=== PATIENT | female | born 1930 | race Caucasian/White ===

== ENCOUNTER 2017-04-23 09:08 | Emergency (ER) | payer MEDICARE, OTHER ==
--- NOTE | 2017-04-23 10:09 | ERNOTE ---
Trauma/Assault HPI - Narrative Date of Service: 04/23/17 - General Stated Complaint: FALL-RIB PAIN/BACK Time Seen by Provider: 04/23/17 10:06 Source: patient, family, RN notes reviewed Exam Limitations: dementia - Immun/Allergies/Home Medications Immunizations: IMMUNIZATION HX Immunizations Up to Date No: unknown History of Influenza Vaccine Yes Allergies/Adverse Reactions: Allergies No Known Allergies Allergy (Verified 04/23/17 09:32) Home Medications: HOME MEDICATIONS Cholecalciferol (Vitamin D3) [Vitamin D3] 2,000 unit PO DAILY 01/04/16 [Last Taken Unknown] Simvastatin [Zocor] 20 mg PO HS 01/04/16 [Last Taken Unknown] Cyanocobalamin [Vitamin B-12] 1,000 mcg PO DAILY #100 tablet 01/05/16 [Last Taken Unknown] Polyethylene Glycol 3350 [Miralax] 17 gm PO HS #1 btl 01/05/16 [Last Taken Unknown] Losartan Potassium [Cozaar] 25 mg PO BID 05/19/16 [Last Taken Unknown] Memantine HCl [Namenda] 10 mg PO BID 05/19/16 [Last Taken Unknown] Metoprolol Tartrate [Lopressor] 25 mg PO BID 04/23/17 [Last Taken Unknown] oxyCODONE HCL/ACETAMINOPHEN [Oxycodone-Acetaminophen 5-325] 1 each PO Q6H PRN # 20 tablet 04/23/17 [Last Taken Unknown] - History of Present Illness Date (Duration): 04/23/17 Time (Timing): 09:00 Narrative: Dilcia is a 86 year old female brought to the ED by her children after a fall just [employer]POR[employer] DIRECT[employer] at home. She ambulates with a walker. Her son reports that her gait is normally very unsteady, but he is unsure what exactly caused the fall. The fall was witnessed. She is having pain in her left posterior ribs and has a contusion and small laceration to her left 5th finger. Location Occurred: Reports: home Pain Location: Reports: chest - Left posterior ribs Method of Injury: Reports: fall Loss of Consciousness: Reports: no loss of consciousness Associated Symptoms - Trauma: Reports: chest pain - left posterior, shortness of breath. Denies: headache, dizziness, slurred speech, trouble walking, neck pain, abdominal pain, nausea, vomiting Review of Systems - Review of Systems Constitutional: Absent: recent illness, fever EYE: Present: no symptoms reported ENT: Absent: ear discharge, nasal drainage Respiratory: Present: shortness of breath. Absent: cough, wheezing, stridor Cardiology: Present: chest pain. Absent: syncope Gastrointestinal/Abdominal: Present: See HPI Genitourinary: Present: no symptoms reported Musculoskeletal: Present: back pain, muscle pain. Absent: neck pain, joint pain , joint swelling Skin: Absent: rash, lesions, lumps Neurological: Present: pre-existing deficit - dementia. Absent: weakness, numbness, tingling Endocrine: Present: no symptoms reported Hematologic/Lymphatic: Present: no symptoms reported Psych: Present: no symptoms reported - Patient's Past Medical History Patient History - Medical: Dementia, Osteoarthritis, Osteoporosis Patient History - Cardiac/Respiratory: Hypertension, Hyperlipidemia Patient History - Cancer: Colon Patient History - Surgical Procedures: Appendectomy, Cataracts, Colon Resection , Hysterectomy, Other Patient History - Other: None LMP (females 10-50): Menopausal - Family History Mother Family History - Medical: Father Family History - Medical: Sister Family History - Medical: - Social History Living Situations: home - lives with son Abuse History: No History of abuse Psych History: No pertinent hx Smoking Status: Never smoker Have you smoked in the past 12 months: No Alcohol Use: none Drug Use: none - Immunizations Immunizations Up to Date: Yes - last tetanus 12/2015 History of Influenza Vaccine: Yes Physical Exam - Physical Exam General Appearance: Present: wd/wn, alert, no apparent distress Neck: Present: normal inspection, nontender, supple Respiratory: Present: no respiratory distress, normal breath sounds, no accessory muscle use Cardiovascular/Chest: Present: regular rate, rhythm, normal peripheral pulses Gastrointestinal/Abdominal: Present: nontender, nondistended, soft Back Exam: Present: no CVA tenderness, no vertebral tenderness, decreased range of motion, other - severe kyphosis, tenderness with palpation of left posterior ribs Extremity Exam: Present: normal except - - ecchymosis and small laceration to left 5th finger, normal range of motion, no edema Skin Exam: Present: normal color, warm/dry ED Progress - Vital Signs Patient's Vital Signs:: I have reviewed the patient's vital signs. Vital Signs: Vital Signs 04/23/17 09:28 Temperature 36.5 C Pulse Rate 60 Respiratory 14 Rate Blood Pressure 138/85 O2 Sat by Pulse 97 Oximetry - X-Ray X-Ray #1 X-Ray: ribs Interpretation: Reviewed by me X-ray Comments: TECHNIQUE: 4 views of the Left sided ribs. COMPARISONS: None available. Ribs Unilateral LT * Decreased mineralization of bone suggestive of underlying osteopenia or osteoporosis. There is a fracture lucency at the posterior left eighth rib, with mild displacement. There may be an additional fracture of the same rib at the lateral aspect. The visualized portions of the chest demonstrates calcified aorta. No obvious consolidation or pneumothorax. IMPRESSION: 1. Comminuted fracture of the left eighth rib suggested as above. 2. Additional comments are as above. Electronically signed by Adelfo Ferreira M.D.. - Progress/Reassessment Chief Complaint: Fall Progress:: Improved Procedures Left Lateral Proximal Finger 5th Digit Length of Repair/Wound (cm): 1.5 Wound's Depth/Shape: into subcutaneous, flap, contused tissue Wound Explored: clean, to base, in bloodless field, no foreign body Wound Intervention: irrigated w/saline Distal NVT: neuro/vasc intact, no tendon injury Wound Repaired With: Dermabond, Steri-strips Layer Closure: Simple Wound Dressing: sterile dressing applied, splint applied Complications: Pt jasmin procedure well Departure Clinical Impression: Left rib fracture Qualifiers: Encounter type: initial encounter Rib fracture type: single rib Fracture type: closed Qualified Code(s): S22.32XA - Fracture of one rib, left side, initial encounter for closed fracture Fall at home Qualifiers: Encounter type: initial encounter Qualified Code(s): W19.XXXA - Unspecified fall, initial encounter; Y92.099 - Unspecified place in other non-institutional residence as the place of occurrence of the external cause Laceration of finger Qualifiers: Encounter type: initial encounter Finger: little finger Damage to nail status: without damage Foreign body presence: without foreign body Laterality: left Qualified Code(s): S61.217A - Laceration without foreign body of left little finger without damage to nail, initial encounter - Departure Disposition: Home Follow Up Needed Condition: Stable Instructions: Rib Fracture Additional Instructions: Ice to sore areas as needed Give 1 regular strength Tylenol with Percocet - or can give Tylenol alone if she doesn't need the Percocet at that time Give additional laxative if needed Leave dressing in place on finger for at least 2 days - allow steri-strips to come off on their own See Dr. Da Silva for follow-up as scheduled, or return to ER if symptoms worsen Referrals: Omi Da Silva MD [Primary Care Provider] - 04/27/17 2:30 pm Prescriptions: oxyCODONE HCL/ACETAMINOPHEN [Oxycodone-Acetaminophen 5-325] 1 each PO Q6H PRN # 20 tablet PRN Reason: Pain
--- OUTSIDE RECORDS SUMMARY | 2017-04-23 10:19 | XMS REPORT | Continuity of Care Document ---
:1930 Author Organization [facility] ([facility]) Address [place] [address] Phone [phone] Care Team Providers Name Role Phone Provider, No-Primary Care Primary Care Provider Unavailable Source Comments This disclosure is being made pursuant to the Care Everywhere program, applicable federal and state laws, and may not contain all informaitonavailable regarding this patient.[facility] ([facility]) Active Allergies and Adverse Reactions Not on File Current Medications Not on file Active Problems Not on file Social History Tobacco Use Types Packs/Day Years Used Date Never Assessed Plan of Care Health Maintenance Due Date Last Done Comments Hepatitis B Vaccine (1 of 3 - Primary Series) 1930 Tdap Vaccine 1942 Lipid Disorder Screening 1949 Td Vaccine 1949 Colonoscopy 07/31/1981 Zoster Vaccine 1991 Osteoporosis Screening (DXA Bone Density) 1996 Pneumococcal Vaccine (1 of 2 - PCV13) 1996 Influenza Vaccine: Seasonal (#1) 06/19/2016 Results from Last 3 Months Not on file
[2017-04-23] MEDS ORDERED: ACETAMINOPHEN 325 MG TABLET PO ONE (10:36)
[2017-04-23] MEDS ORDERED: oxyCODONE HCL/ACETAMINOPHEN 1 TAB TABLET PO ONE (10:36)
[2017-04-23 10:37] VITALS: BP 193/95
[2017-04-23] MEDS ORDERED: oxyCODONE HCL/ACETAMINOPHEN 1 TAB TABLET ONE (10:39)
[2017-04-23] MEDS ORDERED: ACETAMINOPHEN 325 MG TABLET ONE (10:39)
== END 2017-04-23 11:10 | disposition home or self-care (01) ==
LOC: ER 09:08
PROC: 0JQK0ZZ Repair Left Hand Subcutaneous Tissue and Fascia, Open Approach (ICD-10-PCS; principal; 2017-04-23)
DX: S22.32XA Fracture of one rib, left side, initial encounter for closed fracture (principal); S61.217A Laceration without foreign body of left little finger without damage to nail, initial encounter; Z85.038 Personal history of other malignant neoplasm of large intestine; W18.30XA Fall on same level, unspecified, initial encounter; Z91.81 History of falling; Y93.9 Activity, unspecified; Y92.009 Unspecified place in unspecified non-institutional (private) residence as the place of occurrence of the external cause

== ENCOUNTER 2017-04-26 19:13 | Emergency (ER) | payer MEDICARE, OTHER ==
--- OUTSIDE RECORDS SUMMARY | 2017-04-26 20:42 | XMS REPORT | Continuity of Care Document ---
:1930 Author Organization [facility] ([facility]) [place] [address] Phone [phone] Care Team Providers Name Role Phone Provider, No-Primary Care Primary Care Provider Unavailable Source Comments This disclosure is being made pursuant to the Care Everywhere program, applicable federal and state laws, and may not contain all informaitonavailable regarding this patient.[facility] ([facility]) Active Allergies and Adverse Reactions Not on [...]
--- NOTE | 2017-04-26 20:47 | ERNOTE ---
Medical Problem HPI - General Chief Complaint: General Assessment Time Seen by Provider: 04/26/17 20:35 Source: patient, family Exam Limitations: dementia - Immun/Allergies/Home Medications Immunizations: IMMUNIZATION HX Immunizations Up to Date Yes History of Influenza Vaccine Yes Allergies/Adverse Reactions: Allergies No Known Allergies Allergy (Verified 04/26/17 19:24) Home Medications: HOME MEDICATIONS Cholecalciferol (Vitamin D3) [Vitamin D3] 2,000 unit PO DAILY 01/04/16 [Last Taken Unknown] Simvastatin [Zocor] 20 mg PO HS 01/04/16 [Last Taken Unknown] Cyanocobalamin [Vitamin B-12] 1,000 mcg PO DAILY #100 tablet 01/05/16 [Last Taken Unknown] Polyethylene Glycol 3350 [Miralax] 17 gm PO HS #1 btl 01/05/16 [Last Taken Unknown] Losartan Potassium [Cozaar] 25 mg PO BID 05/19/16 [Last Taken Unknown] Memantine HCl [Namenda] 10 mg PO BID 05/19/16 [Last Taken Unknown] Metoprolol Tartrate [Lopressor] 25 mg PO BID 04/23/17 [Last Taken Unknown] oxyCODONE HCL/ACETAMINOPHEN [Oxycodone-Acetaminophen 5-325] 1 each PO Q6H PRN # 20 tablet 04/23/17 [Last Taken Unknown] - History of Present History Narrative: Pt broke left ribs earlier this week and has been taking percocet for pain. She also has not been eating or drinking well since breaking her ribs. she has not had a BM for 2 days and having crampy/ achy abdominal pain. Timing: getting worse Severity: moderate Review of Systems - Review of Systems Constitutional: Present: no symptoms reported EYE: Present: no symptoms reported ENT: Present: no symptoms reported Respiratory: Absent: shortness of breath Cardiology: Present: no symptoms reported Gastrointestinal/Abdominal: Present: See HPI, constipation, abdominal pain, eating less, drinking less Genitourinary: Present: no symptoms reported Musculoskeletal: Present: back pain - left ribs Skin: Present: no symptoms reported Neurological: Present: dizziness/light-headedness - at dinner today but resolved Endocrine: Present: no symptoms reported Hematologic/Lymphatic: Present: no symptoms reported Psych: Present: no symptoms reported - Patient's Past Medical History Patient History - Medical: Dementia, Osteoarthritis, Osteoporosis Patient History - Cardiac/Respiratory: Hypertension, Hyperlipidemia Patient History - Cancer: Colon Patient History - Surgical Procedures: Appendectomy, Cataracts, Colon Resection , Hysterectomy, Other Patient History - Other: None - Family History Mother Family History - Medical: Father Family History - Medical: Sister Family History - Medical: - Social History Living Situations: home Abuse History: No History of abuse Psych History: No pertinent hx Smoking Status: Former smoker Alcohol Use: none Drug Use: none - Immunizations Immunizations Up to Date: Yes History of Influenza Vaccine: Yes Physical Exam - Physical Exam General Appearance: Present: wd/wn, alert, no apparent distress Neck: Present: normal inspection, nontender Respiratory: Present: no respiratory distress, normal breath sounds, lungs clear Cardiovascular/Chest: Present: regular rate, rhythm Gastrointestinal/Abdominal: Present: normal bowel sounds, nondistended, tenderness - RUQ- mild, other - slightly firm B/L upper quads. Absent: guarding , rebound Back Exam: Present: normal inspection, CVA tenderness (L) - due to prevous rib fracture. Absent: CVA tenderness (R), vertebral tenderness, muscle spasm Extremity Exam: Present: normal inspection, non-tender Neurological Exam: Present: alert, other - memory deficit due to dementia Skin Exam: Present: warm/dry ED Progress - Results and Orders Patient's Lab Results:: I have reviewed the patient's lab results. Results and Orders: Laboratory Tests 04/26/17 04/26/17 21:04 21:04 WBC 9.3 Hgb 14.2 Hct 43.2 Plt Count 192 Neutrophils % 83.0 H Sodium 138 Potassium 3.8 Chloride 99 Carbon Dioxide 32.2 Anion Gap 10.6 BUN 30 H D Creatinine 0.95 Est GFR (Non-Af Amer) 59 L BUN/Creatinine Ratio 31.6 H Random Glucose 119 H Calcium 10.0 Total Bilirubin 0.6 AST 14 ALT 17 L Alkaline Phosphatase 93 Total Protein 7.4 Albumin 3.1 L - Vital Signs Patient's Vital Signs:: I have reviewed the patient's vital signs. Vital Signs: Vital Signs 04/26/17 19:18 Temperature 36.8 C Pulse Rate 70 Respiratory 18 Rate Blood Pressure 179/95 O2 Sat by Pulse 96 Oximetry - X-Ray X-Ray #1 X-Ray: abdomen Interpretation: Reviewed by me X-ray Comments: mild stool retention. non-specific bowel gas pattern. Small to moderate left sided pleural effusion X-Ray #2 X-Ray: chest Interpretation: Interp. by me X-ray Comments: Small to moderate left pleural effusion. increased thoracic kyphotic curve Displaced posterior left 8th or 9th rib fracture - CT/Ultrasound CT/Ultrasound Narrative: CT chest without contrast: Posterior left 6-10th rib fractures, 9th is displaced Tiny, less than 5% left pneumothorax mild to moderate left pleural effusion dependent consolidation left lower lobe and band densities b/l likely atelactasis. 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 CXR was ordered, Effusion noted on the left and possible some pneumo on the right upper lung. CT chest with contrast ordered but we were unable to get an IV so order was changed to CT chest without Departure - Departure Clinical Impression: Multiple rib fractures involving four or more ribs, Pleural effusion on left, Pneumothorax on left, Constipation due to opioid therapy Disposition: Home Follow Up Needed Condition: Good Instructions: Constipation, Adult, [id number], Rib Fracture, Pneumothorax, Pleural Effusion Additional Instructions: See Dr. Da Silva as scheduled tomorrow. Take milk of magnesia if needed tomorrow. Return to ER if you begin to be short of breath, dizzy or have chest pain.
[2017-04-26 21:09] LABS: Hematocrit 43.2 % (37.0-47.0); Hemoglobin 14.2 gm/dL (12.5-16.0); Mean Cell Volume 89.8 fl (78-100); Mean Corpuscular Hemoglobin 29.5 pg (27-31); Mean Corpuscular Hgb Conc 32.9 g/dl (32-36); Mean Platelet Volume 10.8 fl (6.0-9.5); Neutrophil # 7.7 K/mm3 (1.3-6.0); Platelet Count 192 K/mm3 (150-450); Red Blood Count 4.81 M/mm3 (4.2-5.4); Red Cell Distribution Width 13.6 % (11.5-14.0); White Blood Count 9.3 K/mm3 (4.0-10.5)
[2017-04-26 21:28] LABS: Albumin * 3.1 gm/dl (3.4-5.0); Anion Gap 10.6 mmol/L (6.8-13.8); BUN/Creatinine Ratio 31.6 (9.0-21.6); Bilirubin, Total 0.6 mg/dL (0.0-1.1); Ca. Corrected For Albumin 10.4 mg/dL (8.4-10.2); Carbon Dioxide 32.2 mmol/L (24-32.6); Potassium 3.8 mmol/L (3.4-4.6); Total Protein 7.4 gm/dL (6.2-8.2)
[2017-04-27] MEDS ORDERED: MAGNESIUM HYDROXIDE 30 ML UDC PO ONE (00:35)
[2017-04-27 01:00] VITALS: BP 176/81
== END 2017-04-27 00:47 | disposition home or self-care (01) ==
LOC: ER 19:13
DX: M84.48XD Pathological fracture, other site, subsequent encounter for fracture with routine healing (principal); J90 Pleural effusion, not elsewhere classified; J93.9 Pneumothorax, unspecified; K59.03 Drug induced constipation; K31.9 Disease of stomach and duodenum, unspecified; T40.2X5A Adverse effect of other opioids, initial encounter; Y92.9 Unspecified place or not applicable

== ENCOUNTER 2017-07-26 19:24 | Emergency (ER) | payer MEDICARE, OTHER ==
[2017-07-26 19:46] LABS: Hematocrit 39.2 % (37.0-47.0); Hemoglobin 12.7 gm/dL (12.5-16.0); Mean Cell Volume 93.8 fl (78-100); Mean Corpuscular Hemoglobin 30.4 pg (27-31); Mean Corpuscular Hgb Conc 32.4 g/dl (32-36); Neutrophil # 5.2 K/mm3 (1.3-6.0); Neutrophil % 72.8 % (42-75.0); Platelet Count 255 K/mm3 (150-450); Red Blood Count 4.18 M/mm3 (4.2-5.4); Red Cell Distribution Width 16.7 % (11.5-14.0); White Blood Count 7.1 K/mm3 (4.0-10.5)
--- NOTE | 2017-07-26 19:55 | ERNOTE ---
Syncope ER HPI Stated Complaint: LOC Time Seen by Provider: 07/26/17 19:35 Source: patient, family Exam Limitations: no limitations Immunizations: IMMUNIZATION HX Immunizations Up to Date Yes History of Influenza Vaccine Yes Allergies/Adverse Reactions: Allergies No Known Allergies Allergy (Verified 07/26/17 19:30) Home Medications: HOME MEDICATIONS Cholecalciferol (Vitamin D3) [Vitamin D3] 2,000 unit PO DAILY 01/04/16 [Last Taken Unknown] Simvastatin [Zocor] 20 mg PO HS 01/04/16 [Last Taken Unknown] Cyanocobalamin [Vitamin B-12] 1,000 mcg PO DAILY #100 tablet 01/05/16 [Last Taken Unknown] Polyethylene Glycol 3350 [Miralax] 17 gm PO HS #1 btl 01/05/16 [Last Taken Unknown] Losartan Potassium [Cozaar] 25 mg PO BID 05/19/16 [Last Taken Unknown] Memantine HCl [Namenda] 10 mg PO BID 05/19/16 [Last Taken Unknown] Metoprolol Tartrate [Lopressor] 25 mg PO BID 04/23/17 [Last Taken Unknown] oxyCODONE HCL/ACETAMINOPHEN [Oxycodone-Acetaminophen 5-325] 1 each PO Q6H PRN # 20 tablet 04/23/17 [Last Taken Unknown] - History of Present Illness Narrative: Patient was sitting in the front row for the rodeo when her family noticed that she became unresponsive and slumped over in her seat. symptoms lasted about five minutes max, she was attended to by EMS and feels completely back to normal now. Patient does not remember any symptoms prior to syncope. She has a history of TIA, no prior CVA. Prior Episodes: Present: no prior history, single episode today Symptoms prior to episode: Present: none Activity at time of episode: Present: sitting Character of event: Present: prolonged (minutes), awake and alert after becoming supine. Absent: incontinent Location of Injury: Present: none Current Symptoms: Present: back to normal Prior Treament: Denies: recently seen, treated by physician, recently hospitalized, similar symptoms before Review of Systems - Review of Systems Constitutional: Absent: recent illness, fever EYE: Absent: double vision, vision changes Respiratory: Absent: shortness of breath Cardiology: Absent: chest pain Gastrointestinal/Abdominal: Absent: nausea, abdominal pain - Patient's Past Medical History Patient History - Medical: Dementia, Osteoarthritis, Osteoporosis Patient History - Cardiac/Respiratory: Hypertension, Hyperlipidemia Patient History - Cancer: Colon Patient History - Surgical Procedures: Appendectomy, Cataracts, Colon Resection , Hysterectomy, Other Patient History - Other: None LMP (females 10-50): Menopausal - Family History Mother Family History - Medical: Father Family History - Medical: Sister Family History - Medical: - Social History Living Situations: home Abuse History: No History of abuse Psych History: No pertinent hx Alcohol Use: none Drug Use: none - Immunizations Immunizations Up to Date: Yes History of Influenza Vaccine: Yes Physical Exam - Physical Exam General Appearance: Present: wd/wn, alert, no apparent distress Head Exam: Present: normal inspection, no evidence of injury Eye Exam: Normal inspection: bilateral, PERRL: bilateral, EOMI: bilateral Ears, Nose, Throat: Present: normal ENT inspection, normal pharynx Respiratory: Present: no respiratory distress, normal breath sounds, no accessory muscle use, lungs clear Cardiovascular/Chest: Present: regular rate, rhythm, no murmur, normal peripheral pulses Gastrointestinal/Abdominal: Present: normal bowel sounds, nontender, nondistended, soft Extremity Exam: Present: no edema Neurological Exam: Present: alert, oriented, normal mood/affect, no motor/ sensory deficits, normal cerebellar test Skin Exam: Present: normal color, warm/dry ED Progress - Results and Orders Patient's Lab Results:: I have reviewed the patient's lab results. - Vital Signs Patient's Vital Signs:: I have reviewed the patient's vital signs. Vital Signs: Vital Signs 07/26/17 07/26/17 07/26/17 19:27 19:32 19:49 Temperature 36.5 C Pulse Rate 72 72 75 Respiratory 16 24 H Rate Blood Pressure 156/66 144/62 O2 Sat by Pulse 96 Oximetry - EKG EKG: NSR, LA - 231, 1st degree , QRS - block, RBBB - incomplete, unchanged from 05/2017 EKG read: Interp. by me - Progress/Reassessment Chief Complaint: Syncopal Episode Progress Note-Subjective: 07/26/17 20:58 patient alert, denies any symptoms, discussed normal test results with patient and family Departure Clinical Impression: Syncope Qualifiers: Syncope type: unspecified Qualified Code(s): R55 - Syncope and collapse - Departure Disposition: [facility] Condition: Stable Instructions: Syncope, [id number] Additional Instructions: call your doctor for follow up Referrals: Omi Da Silva MD [Staff Physician] -
[2017-07-26 20:06] LABS: Albumin * 3.6 gm/dl (3.4-5.0); Anion Gap 14.1 mmol/L (6.8-13.8); BUN/Creatinine Ratio 27.4 (9.0-21.6); Bilirubin, Total 0.3 mg/dL (0.0-1.1); Ca. Corrected For Albumin 9.2 mg/dL (8.4-10.2); Calcium * 9.2 mg/dL (7.9-10.9); Carbon Dioxide 29.8 mmol/L (24-32.6); Potassium 3.9 mmol/L (3.4-4.6); Total Protein 7.2 gm/dL (6.2-8.2)
[2017-07-26 20:51] LABS: Urine Bilirubin Negative (NEGATIVE); Urine Blood Negative /ul (NEGATIVE); Urine Ketone Negative (NEGATIVE); Urine Nitrite Negative (NEGATIVE); Urine Protein Negative (NEGATIVE); Urine Specific Gravity >=1.030 SP.GR. (1.005-1.010); Urine Urobilinogen Normal (NORMAL); Urine pH 5.5 pH (5.0-7.0)
[2017-07-26 21:06] LABS: Urine Appearance Clear; Urine Bacteria TRACE; Urine Color Dark Yellow; Urine Hyaline Cast 0-5 /LPF; Urine RBC None Seen /hpf (0-5); Urine WBC 0-5 /hpf (0-5)
[2017-07-26 22:15] VITALS: BP 146/76
== END 2017-07-26 21:17 ==
LOC: ER 19:24
DX: R55 Syncope and collapse (principal); Z85.038 Personal history of other malignant neoplasm of large intestine

== ENCOUNTER 2018-01-10 10:05 | Emergency (ER) | payer MEDICARE, MEDICAID ==
[2018-01-10 10:19] VITALS: BP 99/69
--- NOTE | 2018-01-10 10:39 | ERNOTE ---
Back Pain ER HPI Date of Service: 01/10/18 Presenting Symptoms: injury/pain to back Time Seen by Provider: 01/10/18 10:11 Source: patient, family, skilled nursing records Exam Limitations: hard of hearing, dementia Immunizations: IMMUNIZATION HX Immunizations Up to Date Yes History of Influenza Vaccine Yes Hx Pneumococcal Vaccination Yes Allergies/Adverse Reactions: Allergies No Known Allergies Allergy (Verified 01/10/18 10:19) Home Medications: HOME MEDICATIONS Cholecalciferol (Vitamin D3) [Vitamin D3] 2,000 unit PO DAILY 01/04/16 [Last Taken Unknown] Simvastatin [Zocor] 20 mg PO HS 01/04/16 [Last Taken Unknown] Cyanocobalamin [Vitamin B-12] 1,000 mcg PO DAILY #100 tablet 01/05/16 [Last Taken Unknown] Polyethylene Glycol 3350 [Miralax] 17 gm PO HS #1 btl 01/05/16 [Last Taken Unknown] Losartan Potassium [Cozaar] 25 mg PO BID 05/19/16 [Last Taken Unknown] Memantine HCl [Namenda] 10 mg PO BID 05/19/16 [Last Taken Unknown] Metoprolol Tartrate [Lopressor] 25 mg PO BID 04/23/17 [Last Taken Unknown] oxyCODONE HCL/ACETAMINOPHEN [Oxycodone-Acetaminophen 5-325] 1 each PO Q6H PRN # 20 tablet 04/23/17 [Last Taken Unknown] Tramadol HCl [Rybix Odt] 50 mg PO HS PRN #15 tab.rapdis 01/10/18 [Last Taken Unknown] Narrative: Patient reported falling yesterday at the care facility complaining of mid and lower back pain. Denies striking any object or striking her head. Denies any neck pain. States she has no pain in any other location. Date (Duration): 01/09/18 Timing: Reports: constant Quality/Severity: Reports: moderate, aching Location of pain: Reports: mid back, lower back, no radiation Activities at Onset: Reports: activity Recent Injury?: Reports: yes Possible Precipitating Factor: Reports: fall/near fall Modifying Factors - (Improves): Reports: nothing Modifying Factors - (Worsens): Reports: nothing Associated Symptoms: Reports: none Review of Systems - Narrative Narrative: See HPI. Denying any dyspnea, CP, abdominal pain, or any other complaints. States her hips feel fine. - Review of Systems Constitutional: Present: no symptoms reported ENT: Present: no symptoms reported Respiratory: Present: no symptoms reported Cardiology: Present: no symptoms reported Gastrointestinal/Abdominal: Present: no symptoms reported Genitourinary: Present: no symptoms reported Musculoskeletal: Present: back pain, other - Describes as a sore aching in the mid back close to the scapula extending down into the lower back. Denies going into sacrum or hips. Skin: Present: no symptoms reported Neurological: Present: no symptoms reported, other - Chronic gait weakness. Ambulates but states she does fall frequently. Endocrine: Present: no symptoms reported Hematologic/Lymphatic: Present: no symptoms reported - Patient's Past Medical History Patient History - Medical: Dementia, Osteoarthritis, Osteoporosis Patient History - Cardiac/Respiratory: Hypertension, Hyperlipidemia Patient History - Cancer: Colon Patient History - Surgical Procedures: Appendectomy, Cataracts, Colon Resection , Hysterectomy, Other Patient History - Other: None - Family History Mother Family History - Medical: Father Family History - Medical: Sister Family History - Medical: - Social History Living Situations: skilled nursing Abuse History: No History of abuse Psych History: No pertinent hx Smoking Status: Former smoker Alcohol Use: none Drug Use: none - Immunizations Immunizations Up to Date: Yes Hx Pneumococcal Vaccination: Yes History of Influenza Vaccine: Yes Physical Exam - Physical Exam General Appearance: Present: wd/wn, alert, no apparent distress Head Exam: Present: normal inspection, no evidence of injury, no tenderness w palpation Eye Exam: Normal inspection: bilateral, PERRL: bilateral, EOMI: bilateral Neck: Present: normal inspection, nontender, supple, full range of motion Respiratory: Present: no respiratory distress, normal breath sounds, no accessory muscle use, chest nontender, lungs clear Cardiovascular/Chest: Present: regular rate, rhythm Back Exam: Present: normal range of motion, other - Has some mild paraspinal tenderness over midupper thoracic with no abnormal bony structure or any point tenderness. Also tenderness in upper lumbar region. No point tenderness or abnormal bony structure. Extremity Exam: Present: normal inspection, other - Normal expected ROM with age. No acute findings. Neurological Exam: Present: alert, oriented, normal mood/affect, no motor/ sensory deficits Skin Exam: Present: normal color, warm/dry ED Progress - Vital Signs Patient's Vital Signs:: I have reviewed the patient's vital signs. Vital Signs: Vital Signs 01/10/18 10:12 Pulse Rate 73 Respiratory 15 Rate Blood Pressure 99/69 O2 Sat by Pulse 97 Oximetry - X-Ray X-Ray #1 X-Ray: thoracic Interpretation: Reviewed by me X-ray Comments: Possible T12 mild compression fracture. X-Ray #2 X-Ray: lumbosacral Interpretation: Reviewed by me X-ray Comments: Possible L4 compression fracture. - Progress/Reassessment Chief Complaint: Back Pain Progress:: Re-examined Progress Note-Subjective: 01/10/18 11:19 Pain remains fairly stable. Patient received tylenol before leaving the care facility and does not want anything stronger at this time. Departure Clinical Impression: Compression fracture of body of thoracic vertebra - Departure Disposition: Nursing Facility, Not [facility] Condition: Good Instructions: Spinal Compression Fracture Additional Instructions: Compression fracture usually do not require additional intervention other than pain control and continuing your current daily activities. Would suggest you use your walker more frequently to prevent further falls and injury. Will provide a mild pain medication for at night to help you sleep if you are in pain. If this makes you dizzy stop taking. Otherwise follow up with your family provider with the results of this visit and discuss whether MRI would be appropriate or not. If pain worsens or you become more weak notify PCP or return to the ER. Prescriptions: Tramadol HCl [Rybix Odt] 50 mg PO HS PRN #15 tab.rapdis PRN Reason: Pain
== END 2018-01-10 11:35 ==
LOC: ER 10:05
DX: Z87.891 Personal history of nicotine dependence; Y92.129 Unspecified place in nursing home as the place of occurrence of the external cause; Z85.038 Personal history of other malignant neoplasm of large intestine; M48.54XA Collapsed vertebra, not elsewhere classified, thoracic region, initial encounter for fracture; W19.XXXA Unspecified fall, initial encounter